=== PATIENT | male | born 1975 | race Caucasian/White ===

== ENCOUNTER 2019-06-24 16:41 | Emergency (ER) | payer OTHER ==
[~2019-06-24] VITALS: Ht 172.7 cm; Wt 136.6 kg
[2019-06-24] MEDS ORDERED: ACCUNEB SO1.25 MG/1 INH (16:57)
[2019-06-24] MEDS ORDERED: KEFLEX500 M1 PO (18:00)
[2019-06-24 18:07] VITALS: BP 148/90
== END 2019-06-24 18:08 | disposition home or self-care (01) ==
LOC: M.ERS 16:41
DX: L03.115 Cellulitis of right lower limb (principal); J45.909 Unspecified asthma, uncomplicated

== ENCOUNTER 2019-06-26 14:12 | Emergency (ER) | payer OTHER ==
[~2019-06-26] VITALS: Ht 172.7 cm; Wt 135.6 kg
[~2019-06-26 14:12] MED LIST: ACCUNEB SO1.25 MG/1 INH; KEFLEX500 M1 PO
[2019-06-26 14:19] VITALS: BP 143/104
[2019-06-26] MEDS ORDERED: BACTRIM DS TAB1 EACH PO (14:41)
[2019-06-26] MEDS ORDERED: CENTANY30 GM TOP (14:41)
== END 2019-06-26 15:05 | disposition home or self-care (01) ==
LOC: M.ERS 14:12
DX: Z04.89 Encounter for examination and observation for other specified reasons (principal); J45.909 Unspecified asthma, uncomplicated